=== PATIENT | female | born 1995 | race Caucasian/White ===

== ENCOUNTER 2019-11-05 02:28 | Outpatient (CLI) | payer MEDICAID, OTHER, SELFPAY ==
--- NOTE | 2019-11-05 14:00 | DI.US_ITS ---
EXAM: US OB 2-3 TRIMESTER CLINICAL HISTORY: Z34.90 SUPERVISION NORMAL TECHNIQUE: Ultrasound performed using standard protocol. COMPARISON: No exams were available for comparison FINDINGS: There is a single living intrauterine gestation. Estimated sonographic age is 21 weeks 6 days. The fetus is in the cephalic presentation. heart rate is 135 BPM. No anatomic abnormalities are identified. The placenta is anterior without evidence of previa. Visually, the amniotic fluid is within normal limits. IMPRESSION: Single living intrauterine gestation. Estimated sonographic age is 21 weeks 6 days.
== END 2019-11-05 02:48 ==
PROVIDERS: PCP Nurse Practitioner Family; Visit Provider Nurse Practitioner Family
DX: Z34.92 Encounter for supervision of normal pregnancy, unspecified, second trimester (principal); Z3A.21 21 weeks gestation of pregnancy
CPT/HCPCS: 76805

== ENCOUNTER 2020-03-12 10:53 | Inpatient (IN) | payer MEDICAID, SELFPAY ==
[2020-03-12 11:32] LABS: HGB 12.5 g/dL (12.0-15.5); Mean Corp. HGB Concentration 33.8 g/dL (32.0-36.0); Mean Corpuscular Hemoglobin 31.3 pg (27.0-33.0); Mean Corpuscular Volume 92.7 fL (80-95); Platelet Count 211 x1000/uL (130-400); RBC 3.99 m/cumm (4.00-5.20); RBC Distribution Width 12.9 % (11.7-14.6); White Blood Cell Count 9.57 k/cumm (4.4-10.8)
[2020-03-12] MEDS: Oxytocin 10 UNITS/ML VIAL IM (19:45)
[2020-03-12] MEDS: hydrOXYzine HCL 25 MG TAB 50 MG PO (23:26)
[2020-03-12] MEDS: sulfaSALAzine 500 MG TAB 1000 MG PO (23:26)
[2020-03-13] MEDS: Ibuprofen 600 MG TAB PO ×3 (05:55→19:39)
[2020-03-13] MEDS: Levothyroxine 50 MCG TAB PO (05:55)
[2020-03-13] MEDS: Hamamelis Leaf/Glycerin 100 EACH BOX PR (06:01)
[2020-03-13 06:48] LABS: COVID-19 RT-PCR UVMMC Result Negative (Negative)
[2020-03-13 07:47] LABS: HCT 33.7 % (36.0-46.0); HGB 11.1 g/dL (12.0-15.5); Mean Corp. HGB Concentration 32.9 g/dL (32.0-36.0); Mean Corpuscular Volume 94.1 fL (80-95); Mean Platelet Volume 11.3 fL (8.0-11.0); Platelet Count 204 x1000/uL (130-400); RBC 3.58 m/cumm (4.00-5.20); RBC Distribution Width 13.1 % (11.7-14.6); White Blood Cell Count 14.73 k/cumm (4.4-10.8)
[2020-03-13] MEDS: Acetaminophen 325 MG TAB 650 MG PO ×2 (08:33→14:13)
[2020-03-13] MEDS: sulfaSALAzine 500 MG TAB 1000 MG PO (08:34)
[2020-03-13] MEDS: buPROPion-XL 150 MG TABCR 300 MG PO (08:34)
[2020-03-13] MEDS: Docusate Sodium 100 MG CAP PO (08:34)
[2020-03-15 15:12] LABS: Chlamydia Result Negative (Negative); GC Result Negative (Negative)
== END 2020-03-13 20:30 | disposition home or self-care (01) | DRG 807 ==
PROVIDERS: Admitting Provider Family Medicine; PCP Nurse Practitioner Family; Visit Provider Family Medicine
DX: O99.344 Other mental disorders complicating childbirth (principal); Z37.0 Single live birth; O99.52 Diseases of the respiratory system complicating childbirth; O99.89 Other specified diseases and conditions complicating pregnancy, childbirth and the puerperium; Z3A.39 39 weeks gestation of pregnancy; F41.8 Other specified anxiety disorders; M08.88 Other juvenile arthritis, other specified site; Z79.899 Other long term (current) drug therapy; Z67.10 Type A blood, Rh positive
CPT/HCPCS: 36415; 85027; 86850; 86900; 86901; 87491; 87591; U0003; J2590

== ENCOUNTER 2023-06-20 10:07 | Outpatient (REF) | payer OTHER, SELFPAY ==
[2023-06-19 22:36] LABS: TSH (W/Ref FT4) 5.02 uIU/mL (0.36-3.74)
[2023-06-19 23:01] LABS: FREE T4 0.95 ng/dL (0.76-1.46)
== END 2023-06-20 10:08 | disposition home or self-care (01) ==
LOC: NCHCN 10:07
PROVIDERS: PCP Nurse Practitioner Family; Visit Provider Nurse Practitioner Family
DX: E03.9 Hypothyroidism, unspecified (principal)
CPT/HCPCS: 84439; 84443

== ENCOUNTER 2023-09-26 17:08 | Outpatient (REF) | payer OTHER, SELFPAY ==
[2023-09-26 21:50] LABS: Abs Immature Grans 0.01 10^3/uL (0.0-0.06); Absolute Basophil Count 0.02 10^3/uL (0.0-0.2); Absolute Eosinophil Count 0.24 10^3/uL (0.0-0.7); Absolute Lymphocyte Count 2.48 10^3/uL (1.2-3.4); Absolute Monocyte Count 0.53 10^3/uL (0.1-0.8); Basophils % 0.3; Eosinophils % 3.8; HCT 37.9 % (36.0-46.0); HGB 12.3 g/dL (11.2-15.7); Immature Grans % 0.2; Lymphocytes % 39.5; MCHC 32.5 % (32.0-36.0); MCV 89 fL (80-95); MPV 11.6 fL (8.0-11.0); Monocytes % 8.4; Neutrophils % 47.8; Platelet Count 239 10^3/uL (130-400); RBC 4.24 10^6/uL (3.93-5.22); RDW 12.8 % (11.7-14.6); WBC 6.28 10^3/uL (4.4-10.8)
[2023-09-26 21:56] LABS: ESR 5 mm/hr (0-20)
[2023-09-26 22:04] LABS: ALT 20 U/L (14-59); AST 14 U/L (15-37); Albumin 3.7 g/dL (3.4-5.0); Alkaline Phosphatase 62 U/L (46-116); Anion Gap 7.4 mmol/L (3-11); BUN 11 mg/dL (7-18); Bilirubin, Total 0.2 mg/dL (0.2-1.0); C-Reactive Protein 0.21 mg/dL (0.0-0.3); CO2 27.6 mmol/L (21.0-32.0); Chloride 107 mmol/L (98-107); Glucose 100 mg/dL (74-106); Potassium 4.3 mmol/L (3.5-5.1); Sodium 142 mmol/L (136-145)
== END 2023-09-26 17:09 | disposition home or self-care (01) ==
LOC: LBN 17:08
PROVIDERS: PCP Nurse Practitioner Family; Visit Provider Nurse Practitioner
DX: M08.88 Other juvenile arthritis, other specified site (principal); M79.7 Fibromyalgia; Z79.899 Other long term (current) drug therapy
CPT/HCPCS: 80053; 85652; 85025; 86140

== ENCOUNTER 2023-11-01 10:55 | Outpatient (REF) | payer OTHER, SELFPAY ==
--- NOTE | 2023-11-01 08:30 | PAPFT_PTH ---
PATIENT: Kari Tabor LOC: [facility] U#:[id number] AGE/SX: 28/F ROOM: RE11/01/[address]: Leti Lancaster : 1995 BED: DIS: 11/01/2023 SPEC #: [id number] RECD: 11/01/23 18:09 STATUS: GATO STOVER #: [id number] RICHARD: 11/01/23 08:[address]: Leti Lancaster DEPT: [facility] Cytology RECD BY: Nory Iniguez ENTERED: 11/01/23 18:09 SP TYPE: PAPFT OTHR DR: Stacie Celestin Tissues: 1 - CX/ENDOCX FOR PAP SMEARS Procedures: PAP THIN PREP/[facility] Screening Comments: [id number] (CHLAMYDIA/GC)
[2023-11-02 14:59] LABS: Chlamydia Result Negative (Negative); GC Result Negative (Negative)
== END 2023-11-01 10:56 | disposition home or self-care (01) ==
LOC: NCHCN 10:55
PROVIDERS: PCP Nurse Practitioner Family; Visit Provider Nurse Practitioner Family
DX: Z12.4 Encounter for screening for malignant neoplasm of cervix (principal); Z00.00 Encounter for general adult medical examination without abnormal findings
CPT/HCPCS: 87491; 87591; 88142

== ENCOUNTER 2024-03-13 20:25 | Outpatient (REF) | payer OTHER, SELFPAY ==
[2024-03-13 20:48] LABS: Abs Immature Grans 0.01 10^3/uL (0.0-0.06); Absolute Basophil Count 0.03 10^3/uL (0.0-0.2); Absolute Eosinophil Count 0.11 10^3/uL (0.0-0.7); Absolute Monocyte Count 0.42 10^3/uL (0.1-0.8); Absolute Neutrophil Count 3.05 10^3/uL (1.2-6.7); Basophils % 0.5 %; Eosinophils % 1.7 %; HCT 38.2 % (36.0-46.0); HGB 12.6 g/dL (11.2-15.7); Immature Grans % 0.2 %; Lymphocytes % 44.5 %; MCH 29.3 pg (27.0-33.0); MCV 89 fL (80-95); MPV 11.2 fL (8.0-11.0); Monocytes % 6.4 %; Neutrophils % 46.7 %; Platelet Count 250 10^3/uL (130-400); RDW 12.4 % (11.7-14.6); RDW-SD 40.2 fL; WBC 6.52 10^3/uL (4.4-10.8)
[2024-03-13 20:52] LABS: ESR 6 mm/hr (0-20)
[2024-03-13 21:02] LABS: ALT 27 U/L (14-59); AST 17 U/L (15-37); Alkaline Phosphatase 63 U/L (46-116); Anion Gap 8.6 mmol/L (3-11); BUN 11 mg/dL (7-18); Bilirubin, Total 0.3 mg/dL (0.2-1.0); CO2 25.4 mmol/L (21.0-32.0); Calcium 8.9 mg/dL (8.5-10.1); Chloride 105 mmol/L (98-107); Glucose 132 mg/dL (74-106); Potassium 3.8 mmol/L (3.5-5.1); Sodium 139 mmol/L (136-145); Total Protein 7.2 g/dL (6.4-8.2)
[2024-03-13 21:05] LABS: C-Reactive Protein < 0.50 mg/dL (<or=0.5)
== END 2024-03-13 20:26 | disposition home or self-care (01) ==
LOC: LBN 20:25
PROVIDERS: PCP Nurse Practitioner Family; Visit Provider Nurse Practitioner
DX: M08.88 Other juvenile arthritis, other specified site (principal); M79.7 Fibromyalgia; Z79.899 Other long term (current) drug therapy
CPT/HCPCS: 80053; 85652; 85025; 86140

== ENCOUNTER 2024-07-07 15:31 | Outpatient (REF) | payer OTHER, SELFPAY ==
[2024-07-09 09:53] LABS: ALT 26 U/L (14-59); AST 20 U/L (15-37); Albumin 4.1 g/dL (3.4-5.0); Alkaline Phosphatase 73 U/L (46-116); Anion Gap 8.7 mmol/L (3-11); BUN 8 mg/dL (7-18); Bilirubin, Total 0.27 mg/dL (0.2-1.0); C-Reactive Protein 0.57 mg/dL (<or=0.5); CO2 29.3 mmol/L (21.0-32.0); Calcium 9.2 mg/dL (8.5-10.1); Chloride 106 mmol/L (98-107); Estimated GFR 78.21 (mL/min/1.73m2); Glucose 83 mg/dL (74-106); Potassium 4.2 mmol/L (3.5-5.1); Sodium 144 mmol/L (136-145); Total Protein 7.4 g/dL (6.4-8.2)
== END 2024-07-07 15:32 | disposition home or self-care (01) ==
LOC: LBN 15:31
PROVIDERS: PCP Nurse Practitioner Family; Visit Provider Nurse Practitioner
DX: M19.09 Primary osteoarthritis, other specified site (principal)
CPT/HCPCS: 80053; 85652; 85025; 86140

== ENCOUNTER 2024-07-17 09:37 | Outpatient (REF) | payer OTHER, SELFPAY ==
[2024-07-17 22:29] LABS: Abs Immature Grans 0.02 10^3/uL (0.0-0.06); Absolute Basophil Count 0.03 10^3/uL (0.0-0.2); Absolute Eosinophil Count 0.14 10^3/uL (0.0-0.7); Absolute Lymphocyte Count 2.65 10^3/uL (1.2-3.4); Absolute Monocyte Count 0.43 10^3/uL (0.1-0.8); Absolute Neutrophil Count 3.03 10^3/uL (1.2-6.7); Basophils % 0.5 %; Eosinophils % 2.2 %; HCT 37.4 % (36.0-46.0); HGB 12.5 g/dL (11.2-15.7); Immature Grans % 0.3 %; Lymphocytes % 42.1 %; MCH 30.1 pg (27.0-33.0); MCHC 33.4 % (32.0-36.0); MCV 90 fL (80-95); MPV 11.4 fL (8.0-11.0); Monocytes % 6.8 %; Neutrophils % 48.1 %; Platelet Count 231 10^3/uL (130-400); RBC 4.15 10^6/uL (3.93-5.22); RDW-SD 39.3 fL
[2024-07-17 22:31] LABS: ESR 5 mm/hr (0-20)
== END 2024-07-17 09:38 | disposition home or self-care (01) ==
LOC: LBN 09:37
PROVIDERS: PCP Nurse Practitioner Family; Visit Provider Nurse Practitioner
DX: M19.90 Unspecified osteoarthritis, unspecified site (principal); Z79.899 Other long term (current) drug therapy
CPT/HCPCS: 82955; 85652; 85025

== ENCOUNTER 2024-09-29 17:41 | Outpatient (REF) | payer OTHER, SELFPAY ==
[2024-09-29 20:08] LABS: Abs Immature Grans 0.01 10^3/uL (0.0-0.06); Absolute Basophil Count 0.03 10^3/uL (0.0-0.2); Absolute Eosinophil Count 0.08 10^3/uL (0.0-0.7); Absolute Lymphocyte Count 2.27 10^3/uL (1.2-3.4); Absolute Monocyte Count 0.43 10^3/uL (0.1-0.8); Absolute Neutrophil Count 2.33 10^3/uL (1.2-6.7); Basophils % 0.6 %; Eosinophils % 1.6 %; HCT 40.1 % (36.0-46.0); HGB 12.9 g/dL (11.2-15.7); Immature Grans % 0.2 %; Lymphocytes % 44.1 %; MCH 29.7 pg (27.0-33.0); MCHC 32.2 % (32.0-36.0); MCV 92 fL (80-95); MPV 11.1 fL (8.0-11.0); Monocytes % 8.3 %; Neutrophils % 45.2 %; Platelet Count 241 10^3/uL (130-400); RBC 4.34 10^6/uL (3.93-5.22); RDW 11.7 % (11.7-14.6); RDW-SD 39.9 fL; WBC 5.15 10^3/uL (4.4-10.8)
[2024-09-29 20:10] LABS: ESR 4 mm/hr (0-20)
== END 2024-09-29 17:42 | disposition home or self-care (01) ==
LOC: LBN 17:41
PROVIDERS: PCP Nurse Practitioner Family; Visit Provider Nurse Practitioner
DX: M19.90 Unspecified osteoarthritis, unspecified site (principal)
CPT/HCPCS: 85652; 85025

== ENCOUNTER 2025-01-20 15:57 | Outpatient (REF) | payer OTHER, SELFPAY ==
[2025-01-20 21:47] LABS: Hemoglobin A1C 5.3 % (<5.7)
[2025-01-20 21:56] LABS: FREE T4 0.96 ng/dL (0.76-1.46); TSH 6.11 uIU/mL (0.36-3.74)
== END 2025-01-20 15:58 | disposition home or self-care (01) ==
LOC: NCHCN 15:57
PROVIDERS: PCP Nurse Practitioner Family; Visit Provider Nurse Practitioner Family
DX: E03.9 Hypothyroidism, unspecified (principal); R73.9 Hyperglycemia, unspecified
CPT/HCPCS: 83036; 84439; 84443

== ENCOUNTER 2025-05-06 17:51 | Outpatient (REF) | payer OTHER, SELFPAY ==
[2025-05-06 18:05] LABS: Abs Immature Grans 0.01 10^3/uL (0.0-0.06); HCT 37.9 % (36.0-46.0); HGB 12.1 g/dL (11.2-15.7); Immature Grans % 0.2 %; MCH 29.2 pg (27.0-33.0); MCHC 31.9 % (32.0-36.0); MCV 92 fL (80-95); MPV 11.3 fL (8.0-11.0); Platelet Count 267 10^3/uL (130-400); RBC 4.14 10^6/uL (3.93-5.22); RDW 12.0 % (11.7-14.6); RDW-SD 40.3 fL; WBC 5.73 10^3/uL (4.4-10.8)
[2025-05-06 18:09] LABS: ESR 8 mm/hr (0-20)
[2025-05-06 18:25] LABS: ALT 22 U/L (14-59); AST 21 U/L (15-37); Albumin 3.8 g/dL (3.4-5.0); Alkaline Phosphatase 57 U/L (46-116); Anion Gap 8.5 mmol/L (3-11); BUN 10 mg/dL (7-18); Bilirubin, Total 0.2 mg/dL (0.2-1.0); CO2 29.5 mmol/L (21.0-32.0); Calcium 8.9 mg/dL (8.5-10.1); Chloride 107 mmol/L (98-107); Estimated GFR 77.72 (mL/min/1.73m2); Glucose 91 mg/dL (74-106); Potassium 3.6 mmol/L (3.5-5.1); Sodium 145 mmol/L (136-145); Total Protein 7.1 g/dL (6.4-8.2)
[2025-05-06 18:26] LABS: C-Reactive Protein < 0.50 mg/dL (<or=0.5)
== END 2025-05-06 17:52 | disposition home or self-care (01) ==
LOC: LBN 17:51
PROVIDERS: PCP Nurse Practitioner Family; Visit Provider Nurse Practitioner
DX: Z79.899 Other long term (current) drug therapy (principal); M08.80 Other juvenile arthritis, unspecified site; M19.90 Unspecified osteoarthritis, unspecified site
CPT/HCPCS: 80053; 85652; 85025; 86140

== ENCOUNTER 2025-08-28 21:17 | Outpatient (REF) | payer OTHER, SELFPAY ==
[2025-08-28 21:49] LABS: Abs Immature Grans 0.01 10^3/uL (0.0-0.06); HCT 37.6 % (36.0-46.0); HGB 12.1 g/dL (11.2-15.7); Immature Grans % 0.2 %; MCH 29.3 pg (27.0-33.0); MCHC 32.2 % (32.0-36.0); MCV 91 fL (80-95); MPV 11.1 fL (8.0-11.0); Platelet Count 246 10^3/uL (130-400); RBC 4.13 10^6/uL (3.93-5.22); RDW 12.0 % (11.7-14.6); RDW-SD 40.2 fL; WBC 4.97 10^3/uL (4.4-10.8)
[2025-08-28 21:59] LABS: C-Reactive Protein < 0.50 mg/dL (<=0.50)
[2025-08-28 22:01] LABS: ALT 32 U/L (10-49); AST 25 U/L (<34); Albumin 4.7 g/dL (3.2-5.0); Alkaline Phosphatase 58 U/L (46-116); Anion Gap 8.3 mmol/L (3-11); BUN 11 mg/dL (9-23); Bilirubin, Total 0.30 mg/dL (0.2-1.2); CO2 27.7 mmol/L (20.0-31.0); Calcium 8.9 mg/dL (8.3-10.6); Chloride 106 mmol/L (98-107); ESR 11 mm/hr (0-20); Glucose 93 mg/dL (74-106); Potassium 3.9 mmol/L (3.5-5.1); Sodium 142 mmol/L (136-145); Total Protein 7.4 g/dL (5.7-8.2)
== END 2025-08-28 21:18 | disposition home or self-care (01) ==
LOC: LBN 21:17
PROVIDERS: PCP Nurse Practitioner Family; Visit Provider Nurse Practitioner
DX: Z79.899 Other long term (current) drug therapy (principal); M08.80 Other juvenile arthritis, unspecified site; M19.90 Unspecified osteoarthritis, unspecified site
CPT/HCPCS: 80053; 85652; 85025; 86140